=== PATIENT | female | born 1970 | race Asian ===

== ENCOUNTER 2018-12-01 22:38 | Emergency (ER) | payer MEDICARE ==
[~2018-12-01] VITALS: Ht 160 cm; Wt 82.9 kg
[2018-12-01 22:42] VITALS: BP 165/96
[2018-12-01] MEDS ORDERED: MAALOX/HYOSCYAMINE/LIDOCAINE 45 ML BTL ONE (23:35)
[2018-12-02] MEDS ORDERED: MAALOX/HYOSCYAMINE/LIDOCAINE 45 ML BTL PO ONE
--- NOTE | 2018-12-02 00:10 | NUR ---
PT D/C WITH D/C SUMMARY. ALL QUESTIONS ANSWERED. PT AMBULATES TO REGISTATION DESK WITH STEADY GAIT FOR D/C HOME. PT DENIES ANY OTHER NEEDS PERTAINING TO THIS VISIT.
== END 2018-12-02 00:17 ==
LOC: ED 23:08
DX: R09.89 Other specified symptoms and signs involving the circulatory and respiratory systems (principal)
CPT/HCPCS: 99281; 99282